=== PATIENT | female | born 1945 | race Two or more races ===

== ENCOUNTER 2023-04-06 17:46 | Emergency (ER) | payer OTHER ==
[~2023-04-06] VITALS: Ht 149.9 cm; Wt 60.8 kg
[2023-04-06] MEDS ORDERED: PLAVIX75 MG PO (18:11)
[2023-04-06] MEDS ORDERED: NORVASC5 MG PO (18:11)
[2023-04-06] MEDS ORDERED: ALTACE1.25 MG PO (18:15)
[2023-04-06] MEDS ORDERED: CLEOCIN HCL300 MG PO (21:40)
== END 2023-04-06 23:00 ==
LOC: ER 17:46
DX: S61.422A Laceration with foreign body of left hand, initial encounter (principal); W26.0XXA Contact with knife, initial encounter; Y93.G3 Activity, cooking and baking; Y92.010 Kitchen of single-family (private) house as the place of occurrence of the external cause; M19.042 Primary osteoarthritis, left hand
CPT/HCPCS: 12001; 36415; 90471; 90714; 99284; J0690; J3490